=== PATIENT | male | born 1990 | race African-American/Black ===

== ENCOUNTER 2017-12-03 22:18 | Emergency (ER) | payer SELFPAY ==
[~2017-12-03] VITALS: Ht 185.4 cm; Wt 77.4 kg
[2017-12-04 01:16] LABS: CLARITY URINE CLEAR (CLEAR); COLOR URINE DARK YELLOW (YELLOW); KETONES URINE 1+ (NEGATIVE); LEUKOCYTE ESTERASE URINE 1+ (NEGATIVE); NITRITE URINE NEGATIVE (NEGATIVE); OCCULT BLOOD URINE NEGATIVE (NEGATIVE); PH URINE 5.5 (4.5-8.0); PROTEIN URINE 1+ (NEGATIVE); SPECIFIC GRAVITY URINE 1.039 (1.005-1.030)
[2017-12-04 04:48] LABS: CHLORIDE 103 mEq/L (98-107)
[2017-12-04 04:53] LABS: BASOPHILS % 0.4 % (0.0-2.0); HEMATOCRIT. 41.9 % (42.0-52.0); HEMOGLOBIN. 14.3 g/dL (14.0-18.0); INR 1.1; LYMPHOCYTES % 34.8 % (20.0-50.0); MEAN CORPUSCULAR HEMOGLOBIN 31.9 pg (28.0-32.0); MEAN CORPUSCULAR VOLUME 93.4 fL (80.0-94.0); MEAN PLATELET VOLUME 10.3 fl (7.4-10.4); NEUTROPHILS % 50.8 % (40.0-76.0); PLATELET 200 x1000/uL (130-400); PROTHROMBIN TIME 11.2 sec (9.1-11.1); RED BLOOD CELL COUNT 4.49 mill/uL (4.7-6.1); RED CELL DISTRIBUTION WIDTH 13.1 % (11.6-14.6)
[2017-12-04] MEDS ORDERED: KETOROLAC 15MG/ML VIAL IV ONE (06:45)
[2017-12-04 08:23] VITALS: BP 111/74
== END 2017-12-04 08:37 | disposition home or self-care (01) ==
LOC: ER 22:18 → CANBEDREQ 12-04 05:40 → ER 12-04 08:37
DX: R10.31 Right lower quadrant pain (principal); N20.0 Calculus of kidney
CPT/HCPCS: 36415; 74176; 80053; 81003; 85025; 85610; 96374; 99285; J1885

== ENCOUNTER 2022-02-17 11:05 | Emergency (ER) | payer MEDICAID ==
[~2022-02-17] VITALS: Ht 185.4 cm; Wt 95.0 kg
[2022-02-17] MEDS ORDERED: IBUPROFEN 600MG TABLET PO ONE (11:45)
[2022-02-17] MEDS ORDERED: BACITRACIN ZINC OINT UDPKT TOP ONE (11:45)
[2022-02-17] MEDS ORDERED: LIDOCAINE HCL/PF 1% 10 MG/ML 5ML VIAL INFIL ONE (11:45)
[2022-02-17] MEDS ORDERED: BO1 TP (11:56)
[2022-02-17] MEDS ORDERED: IBUP-2029 MT (11:56)
[2022-02-17 12:05] VITALS: BP 147/91
[2022-02-17] MEDS ORDERED: CEPH500C2 MT (13:08)
== END 2022-02-17 14:14 | disposition home or self-care (01) ==
LOC: ER 11:05
DX: S41.112A Laceration without foreign body of left upper arm, initial encounter (principal); W01.0XXA Fall on same level from slipping, tripping and stumbling without subsequent striking against object, initial encounter; Y93.89 Activity, other specified; Y92.89 Other specified places as the place of occurrence of the external cause; Y99.8 Other external cause status; Z59.00 Homelessness unspecified
CPT/HCPCS: 12005; 99284; J3490

== ENCOUNTER 2022-02-20 13:51 | Emergency (ER) | payer MEDICAID ==
[~2022-02-20] VITALS: Ht 185.4 cm; Wt 93.0 kg
[~2022-02-20 13:51] MED LIST: BO1 TP; CEPH500C2 MT; IBUP-2029 MT
[2022-02-20 14:19] VITALS: BP 132/93
== END 2022-02-20 16:59 | disposition home or self-care (01) ==
LOC: ER 13:51
DX: Z48.00 Encounter for change or removal of nonsurgical wound dressing (principal)
CPT/HCPCS: 99281